=== PATIENT | male | born 1935 | race Caucasian/White ===

== ENCOUNTER 2019-12-10 17:49 | Emergency (ER) | payer BC ==
[~2019-12-10] VITALS: Ht 185.4 cm; Wt 79.4 kg
[2019-12-10 18:43] LABS: BASOPHILS ABSOLUTE AUTO 0.04 K/mm3 (0.00-0.23); BASOPHILS PERCENT AUTO 1 % (0-2); EOSINOPHILS ABSOLUTE AUTO 0.08 K/mm3 (0.00-0.68); EOSINOPHILS PERCENT AUTO 1 % (0-6); Hematocrit 48.2 % (37.0-53.0); Hemoglobin 16.6 g/dL (13.5-17.5); IMMATURE GRAN ABSOLUTE AUTO 0.02 K/mm3 (0.00-0.10); IMMATURE GRAN PERCENT AUTO 0 % (0-1); LYMPHOCYTES ABSOLUTE AUTO 2.21 K/mm3 (0.84-5.20); LYMPHOCYTES PERCENT AUTO 31 % (21-46); MONOCYTES ABSOLUTE AUTO 0.69 K/mm3 (0.16-1.47); MONOCYTES PERCENT AUTO 10 % (4-13); Mean Corpuscular HGB 31.8 pg (26.0-34.0); Mean Corpuscular HGB Conc 34.4 g/dL (31.5-36.5); Mean Corpuscular Volume 92 fL (80-100); Mean Platelet Volume 9.3 fL (9.1-12.4); NEUTROPHILS ABSOLUTE AUTO 4.01 K/mm3 (1.96-9.15); NEUTROPHILS PERCENT AUTO 57 % (41-73); Platelet Count 174 K/mm3 (150-400); RDW Coefficient Variation 13.2 % (11.7-14.2); RDW Standard Deviation 44.8 fL (35.1-46.3); Red Blood Cell Count 5.22 M/mm3 (4.30-5.90); White Blood Cell Count 7.05 K/mm3 (4.00-11.30)
[2019-12-10 18:58] LABS: Alanine Aminotransfer (ALT/SGP 43 U/L (12-78); Albumin, Blood 4.1 g/dL (3.4-5.0); Albumin/Globulin Ratio 1.4 (0.8-1.8); Alk Phos 72 U/L (50-136); Anion Gap 4 mmol/L (6-16); Aspartate Aminotrans (AST/SGOT 34 U/L (12-37); Bilirubin, Total 1.2 mg/dL (0.1-1.0); Blood Urea Nitrogen 21 mg/dL (8-24); Bun/Creatinine Ratio 24.3 (12.0-20.0); CO2, Blood 22 mmol/L (21-32); Calcium, Blood 9.5 mg/dL (8.5-10.1); Chloride, Blood 108 mmol/L (98-108); Creatinine, Blood 0.86 mg/dL (0.60-1.20); Globulin, Blood 2.9 g/dL (2.2-4.0); Glomerular Filtration Rate >60 (60-); Glucose, Blood 96 mg/dL (70-99); Potassium, Blood 4.1 mmol/L (3.5-5.5); Sodium, Blood 134 mmol/L (136-145)
[2019-12-10] MEDS ORDERED: ELIQUIS5 MG PO (20:34)
[2019-12-10] MEDS ORDERED: METO25ER PO (20:35)
[2019-12-10] MEDS ORDERED: TAMS.4ER PO (20:36)
[2019-12-10 20:57] LABS: Source, Urine Clean Catch
[2019-12-10 21:06] LABS: Appearance, Urine Clear (Clear); Bilirubin, Urine Neg (Neg); Blood, Urine 1+ (Neg); Color, Urine Yellow (P-Yellow); Glucose Qualitative, Urine Neg (Neg); Ketones, Urine 3+ (Neg); Leukocyte Esterase, Urine Neg (Neg); Nitrite, Urine Neg (Neg); Protein, Urine Neg (Neg); Urobilinogen, Urine NORM (Normal)
[2019-12-10 21:13] LABS: Bacteria Mod /hpf; Mucus Light (0-Heavy); Red Blood Cells, Urine 0-2 /hpf (0-2); Spermatozoa Mod /hpf; Squamous Epithelial Cells Few /hpf (Few); White Blood Cells, Urine 0-2 /hpf (0-5)
[2019-12-10] MEDS ORDERED: CEFDITOREN PIV200 MG PO (23:30)
== END 2019-12-10 23:44 | disposition home or self-care (01) ==
LOC: ER 17:49
PROVIDERS: Physician Assistant
DX: N30.90 Cystitis, unspecified without hematuria (principal); I48.91 Unspecified atrial fibrillation; Z79.899 Other long term (current) drug therapy
CPT/HCPCS: 36415; 74176; 80053; 81001; 83690; 85025; 87086; 96361; 96374; 99284-25; A9270; A9270-GY; J3010; J7030

== ENCOUNTER 2023-02-08 22:47 | Inpatient (IN) | payer OTHER, BC ==
[~2023-02-08] VITALS: Ht 185.4 cm; Wt 84.0 kg
[~2023-02-08 22:47] MED LIST: CEFDITOREN PIV200 MG PO; ELIQUIS5 MG PO; METO25ER PO; TAMS.4ER PO
[2023-02-09 02:45] LABS: BASOPHILS ABSOLUTE AUTO 0.06 K/mm3 (0.00-0.23); BASOPHILS PERCENT AUTO 1 % (0-2); EOSINOPHILS ABSOLUTE AUTO 0.02 K/mm3 (0.00-0.68); EOSINOPHILS PERCENT AUTO 0 % (0-6); Hematocrit 47.8 % (37.0-53.0); Hemoglobin 16.1 g/dL (13.5-17.5); IMMATURE GRAN ABSOLUTE AUTO 0.04 K/mm3 (0.00-0.10); IMMATURE GRAN PERCENT AUTO 0 % (0-1); LYMPHOCYTES ABSOLUTE AUTO 1.22 K/mm3 (0.84-5.20); LYMPHOCYTES PERCENT AUTO 11 % (21-46); MONOCYTES ABSOLUTE AUTO 0.73 K/mm3 (0.16-1.47); MONOCYTES PERCENT AUTO 7 % (4-13); Mean Corpuscular HGB 31.4 pg (26.0-34.0); Mean Corpuscular HGB Conc 33.7 g/dL (31.5-36.5); Mean Corpuscular Volume 93 fL (80-100); Mean Platelet Volume 9.2 fL (9.1-12.4); NEUTROPHILS ABSOLUTE AUTO 8.61 K/mm3 (1.96-9.15); NEUTROPHILS PERCENT AUTO 81 % (41-73); Platelet Count 183 K/mm3 (150-400); RDW Coefficient Variation 13.7 % (11.7-14.2); RDW Standard Deviation 47.7 fL (35.1-46.3); Red Blood Cell Count 5.12 M/mm3 (4.30-5.90); White Blood Cell Count 10.68 K/mm3 (4.00-11.30)
[2023-02-09 03:00] LABS: Bun/Creatinine Ratio 33.4 (12.0-20.0); Calcium, Blood 9.2 mg/dL (8.5-10.1); Creatinine, Blood 0.66 mg/dL (0.60-1.20); Potassium, Blood 3.8 mmol/L (3.5-5.5)
[2023-02-09 03:01] LABS: International Normalized Ratio 1.08; Prothrombin Time Results 11.3 Sec (9.7-11.5)
[2023-02-09 04:38] VITALS: BP 145/78
[2023-02-09 07:18] VITALS: BP 137/69
[2023-02-09 14:16] VITALS: BP 128/83
[2023-02-09 19:49] VITALS: BP 144/77
[2023-02-10] VITALS (10 sets, daily range): BP systolic 108–141; BP diastolic 62–87
[2023-02-10 05:15] LABS: BASOPHILS ABSOLUTE AUTO 0.04 K/mm3 (0.00-0.23); BASOPHILS PERCENT AUTO 1 % (0-2); EOSINOPHILS ABSOLUTE AUTO 0.06 K/mm3 (0.00-0.68); EOSINOPHILS PERCENT AUTO 1 % (0-6); Hematocrit 42.1 % (37.0-53.0); Hemoglobin 14.6 g/dL (13.5-17.5); IMMATURE GRAN ABSOLUTE AUTO 0.03 K/mm3 (0.00-0.10); IMMATURE GRAN PERCENT AUTO 0 % (0-1); LYMPHOCYTES ABSOLUTE AUTO 1.35 K/mm3 (0.84-5.20); LYMPHOCYTES PERCENT AUTO 16 % (21-46); MONOCYTES ABSOLUTE AUTO 1.08 K/mm3 (0.16-1.47); MONOCYTES PERCENT AUTO 13 % (4-13); Mean Corpuscular HGB 31.6 pg (26.0-34.0); Mean Corpuscular HGB Conc 34.7 g/dL (31.5-36.5); Mean Corpuscular Volume 91 fL (80-100); NEUTROPHILS ABSOLUTE AUTO 5.79 K/mm3 (1.96-9.15); NEUTROPHILS PERCENT AUTO 69 % (41-73); Platelet Count 169 K/mm3 (150-400); RDW Coefficient Variation 13.8 % (11.7-14.2); RDW Standard Deviation 46.5 fL (35.1-46.3); Red Blood Cell Count 4.62 M/mm3 (4.30-5.90); White Blood Cell Count 8.35 K/mm3 (4.00-11.30)
[2023-02-10 18:37] LABS: Source, Urine Straight Cath
[2023-02-10 18:46] LABS: Bilirubin, Urine Neg (Neg); Blood, Urine 3+ (Neg); Color, Urine Yellow (P-Yellow); Glucose Qualitative, Urine Neg (Neg); Ketones, Urine 2+ (Neg); Leukocyte Esterase, Urine Neg (Neg); Nitrite, Urine Neg (Neg); Protein, Urine 1+ (Neg); Urobilinogen, Urine NORM (Normal); pH, Urine 6.5 (5.0-8.0)
[2023-02-10 19:00] LABS: Appearance, Urine Hazy (Clear)
[2023-02-10 19:22] LABS: White Blood Cells, Urine 0-2 /hpf (0-5)
[2023-02-10 19:23] LABS: Bacteria Few /hpf; Hyaline Casts 0-2 /lpf (0-2); Mucus Light (0-Heavy); Spermatozoa Mod /hpf; Squamous Epithelial Cells Rare /hpf (Few)
[2023-02-11 00:19] VITALS: BP 123/69
[2023-02-11 06:18] LABS: BASOPHILS ABSOLUTE AUTO 0.01 K/mm3 (0.00-0.23); BASOPHILS PERCENT AUTO 0 % (0-2); EOSINOPHILS PERCENT AUTO 0 % (0-6); Hematocrit 39.7 % (37.0-53.0); Hemoglobin 13.5 g/dL (13.5-17.5); IMMATURE GRAN ABSOLUTE AUTO 0.04 K/mm3 (0.00-0.10); IMMATURE GRAN PERCENT AUTO 0 % (0-1); LYMPHOCYTES ABSOLUTE AUTO 0.71 K/mm3 (0.84-5.20); LYMPHOCYTES PERCENT AUTO 6 % (21-46); MONOCYTES ABSOLUTE AUTO 0.62 K/mm3 (0.16-1.47); MONOCYTES PERCENT AUTO 6 % (4-13); Mean Corpuscular HGB 31.9 pg (26.0-34.0); Mean Corpuscular Volume 94 fL (80-100); Mean Platelet Volume 9.4 fL (9.1-12.4); NEUTROPHILS ABSOLUTE AUTO 9.73 K/mm3 (1.96-9.15); NEUTROPHILS PERCENT AUTO 88 % (41-73); Platelet Count 163 K/mm3 (150-400); RDW Coefficient Variation 13.5 % (11.7-14.2); RDW Standard Deviation 46.4 fL (35.1-46.3); Red Blood Cell Count 4.23 M/mm3 (4.30-5.90); White Blood Cell Count 11.11 K/mm3 (4.00-11.30)
[2023-02-11 06:40] LABS: Bun/Creatinine Ratio 27.7 (12.0-20.0); Calcium, Blood 8.4 mg/dL (8.5-10.1); Creatinine, Blood 0.72 mg/dL (0.60-1.20); Magnesium, Blood 2.1 mg/dL (1.6-2.4); Potassium, Blood 3.9 mmol/L (3.5-5.5)
[2023-02-11 07:04] VITALS: BP 119/72
[2023-02-11 14:46] VITALS: BP 112/60
[2023-02-11 20:00] VITALS: BP 121/68
[2023-02-12 02:36] VITALS: BP 125/68
[2023-02-12 07:40] VITALS: BP 131/74
[2023-02-12 10:25] VITALS: BP 135/69
[2023-02-12] MEDS ORDERED: METO25ER PO (14:05)
[2023-02-12] MEDS ORDERED: SULTRIDS PO (14:08)
[2023-02-12] MEDS ORDERED: OXYC5 PO (14:08)
[2023-02-12] MEDS ORDERED: DOCU100 PO (14:08)
[2023-02-12 14:23] VITALS: BP 146/81
== END 2023-02-12 14:56 | disposition home health service (06) | DRG 522 ==
LOC: ER 22:47 → SURS 02-09 04:29
PROVIDERS: Internal Medicine; Orthopaedic Surgery; Student in an Organized Health Care Education/Training Program; ADMIT Internal Medicine
PROC: 0SRR0J9 Replacement of Right Hip Joint, Femoral Surface with Synthetic Substitute, Cemented, Open Approach (ICD-10-PCS; principal; 2023-02-10 14:00)
DX: S72.001A Fracture of unspecified part of neck of right femur, initial encounter for closed fracture (principal); I48.20 Chronic atrial fibrillation, unspecified; Z66 Do not resuscitate; W01.0XXA Fall on same level from slipping, tripping and stumbling without subsequent striking against object, initial encounter; F10.10 Alcohol abuse, uncomplicated; Z79.01 Long term (current) use of anticoagulants; Z79.899 Other long term (current) drug therapy; Z90.49 Acquired absence of other specified parts of digestive tract; Z87.442 Personal history of urinary calculi
CPT/HCPCS: 36415; 72170; 73502; 80048; 81001; 83735; 85025; 85610; 85730; 86850; 86900; 86901; 87086; 93005; 93010; 97110; 97116; 97161; 97165; 97530; 97535; 99284-25; A9270; C1713; C1776; J0171; J0690; J0696; J0735; J1100; J1885; J2370; J2405; J2704; J2795; J3010; J3370; J7030; J7120

== ENCOUNTER 2023-06-13 12:48 | Inpatient (IN) | payer OTHER ==
[~2023-06-13] VITALS: Ht 185.4 cm; Wt 82.1 kg
[~2023-06-13 12:48] MED LIST changes: +DOCU100 PO; +OXYC5 PO; +SULTRIDS PO
[2023-06-13] MEDS ORDERED: ACET500 PO (13:25)
[2023-06-13 14:28] LABS: Bun/Creatinine Ratio 31.7 (12.0-20.0); Calcium, Blood 8.1 mg/dL (8.5-10.1); Creatinine, Blood 0.73 mg/dL (0.60-1.20); Potassium, Blood 3.9 mmol/L (3.5-5.5)
[2023-06-13 14:36] LABS: BASOPHILS ABSOLUTE AUTO 0.04 K/mm3 (0.00-0.23); BASOPHILS PERCENT AUTO 1 % (0-2); EOSINOPHILS ABSOLUTE AUTO 0.05 K/mm3 (0.00-0.68); EOSINOPHILS PERCENT AUTO 1 % (0-6); Hematocrit 42.9 % (37.0-53.0); Hemoglobin 14.7 g/dL (13.5-17.5); IMMATURE GRAN ABSOLUTE AUTO 0.04 K/mm3 (0.00-0.10); IMMATURE GRAN PERCENT AUTO 1 % (0-1); LYMPHOCYTES ABSOLUTE AUTO 1.45 K/mm3 (0.84-5.20); LYMPHOCYTES PERCENT AUTO 20 % (21-46); MONOCYTES ABSOLUTE AUTO 0.68 K/mm3 (0.16-1.47); MONOCYTES PERCENT AUTO 9 % (4-13); Mean Corpuscular HGB Conc 34.3 g/dL (31.5-36.5); Mean Corpuscular Volume 91 fL (80-100); Mean Platelet Volume 9.1 fL (9.1-12.4); NEUTROPHILS PERCENT AUTO 69 % (41-73); Platelet Count 167 K/mm3 (150-400); RDW Coefficient Variation 13.8 % (11.7-14.2); Red Blood Cell Count 4.74 M/mm3 (4.30-5.90); White Blood Cell Count 7.36 K/mm3 (4.00-11.30)
--- NOTE | 2023-06-13 17:00 | NUR ---
PT ARRIVED TO THE UNIT AT APPROXIMATELY 1650. PAIN MANAGED AT TIME OF ARRIVAL TO THE ROOM. FAMILY AT THE BEDSIDE FOR SUPPORT.
[2023-06-13 17:04] VITALS: BP 155/68
--- NOTE | 2023-06-13 17:04 | NUR ---
PT ARRIVED TO THE ROOM AT APPROXIMATELY 1700. PT REPORTS PAIN IS TOLERABLE WHILE AT REST. PT HAS COROPLAST SPLINT IN PLACE, WILL NOTIFY DR. BAUMANN. FAMILY AT BEDSIDE FOR SUPPORT.
[2023-06-13] MEDS ORDERED: HYALURONIC ACID60 MG PO (18:44)
[2023-06-13 19:51] VITALS: BP 126/73
--- NOTE | 2023-06-13 20:03 | NUR ---
SHIFT SUMMARY PAIN MANAGED WITH IV FENT SINCE ARRIVAL. SPLINT REMOVED AND BUCKS TRACTION PLACED. REPORT GIVEN TO HONG RIVERA.
[2023-06-14] VITALS (11 sets, daily range): BP systolic 106–151; BP diastolic 43–81
--- NOTE | 2023-06-14 04:39 | NUR ---
SHIFT SUMMARY VSS. PT SLEPT ON AND OFF T/O THE NIGHT. HAS BEEN NPO SINCE 0000 FOR SURGERY TODAY. MEDICATED FOR PAIN WITH NORCO. PT C/O SPASMS AT THE BEGINNING OF SHIFT, OBTAINED ORDER FOR A MUSCLE RELAXER BUT PT DID NOT WANT TO TAKE IT. SPASMS RESOLVED. RLE ICED ON AND OFF T/O THE NIGHT. MAJOR SWELLING AND DEFORMITY NOTED RIGHT THIGH, BUCKS TRACTION IN PLACE. RLE HAS STRONG PULSE. PT DENIES ANY CHANGES IN SENSATION AND CAN MOVE FOOT ON THIS LEG ON COMMAND. PT VOIDING INTO URINAL. NO ACUTE EVENTS NOTED.
--- NOTE | 2023-06-14 18:05 | NUR ---
SHIFT SUMMARY PT IS POD#0 FROM R FEMUR REPAIR WITH DR. BAUMANN, HE ARRIVED BACK TO THE ROOM AT APPROXIMATELY 1620. PT REPORTS PAIN IS TOLERABLE WHILE AT REST. PT NAUSEATED UPON ARRIVAL TO ROOM, ZOFRAN RESOLVED NAUSEA. PT IS NOW TOLERATING FLUIDS AND SALTINE CRACKERS. FAMILY AT THE BEDSIDE FOR SUPPORT. CALL LIGHT WITHIN REACH.
[2023-06-15 00:41] VITALS: BP 107/77
[2023-06-15 03:03] VITALS: BP 109/76
--- NOTE | 2023-06-15 04:13 | NUR ---
SHIFT SUMMARY POD1 ORIF OF THE RIGHT FEMUR. DRESSING IS C/D/I, SENSATION AND CIRCULATION REMAINS INTACT IN THIS LIMB. STRONG PULSE NOTED. PT REPORTS HE MOVES HIS FOOT AND ANKLE AROUND "ALL NIGHT". APPEARED MOTIVATED TO RECOVER. PT WAS MEDICATED FOR PAIN ONCE, REPORTS HE FEELS LITTLE TO NO DISCOMFORT AND IS VERY HAPPY WITH THIS RESULT. VOIDING W/O DIFFICUTY, TOLLERATING PO INTAKE. TELE HAS READ AFIB. NO ACUTE EVENTS NOTED. PLAN FOR PT EVAL AND BEGINNING TO AMBULATE
[2023-06-15 05:34] LABS: BASOPHILS ABSOLUTE AUTO 0.02 K/mm3 (0.00-0.23); BASOPHILS PERCENT AUTO 0 % (0-2); EOSINOPHILS PERCENT AUTO 0 % (0-6); Hematocrit 30.3 % (37.0-53.0); Hemoglobin 10.5 g/dL (13.5-17.5); IMMATURE GRAN ABSOLUTE AUTO 0.05 K/mm3 (0.00-0.10); IMMATURE GRAN PERCENT AUTO 0 % (0-1); LYMPHOCYTES ABSOLUTE AUTO 1.39 K/mm3 (0.84-5.20); LYMPHOCYTES PERCENT AUTO 11 % (21-46); MONOCYTES ABSOLUTE AUTO 1.38 K/mm3 (0.16-1.47); MONOCYTES PERCENT AUTO 11 % (4-13); Mean Corpuscular HGB Conc 34.7 g/dL (31.5-36.5); Mean Corpuscular Volume 92 fL (80-100); Mean Platelet Volume 9.5 fL (9.1-12.4); NEUTROPHILS ABSOLUTE AUTO 9.89 K/mm3 (1.96-9.15); NEUTROPHILS PERCENT AUTO 78 % (41-73); Platelet Count 161 K/mm3 (150-400); RDW Standard Deviation 47.6 fL (35.1-46.3); Red Blood Cell Count 3.28 M/mm3 (4.30-5.90); White Blood Cell Count 12.73 K/mm3 (4.00-11.30)
[2023-06-15 05:50] LABS: Bun/Creatinine Ratio 28.3 (12.0-20.0); Calcium, Blood 7.9 mg/dL (8.5-10.1); Creatinine, Blood 0.67 mg/dL (0.60-1.20); Magnesium, Blood 2.2 mg/dL (1.6-2.4); Potassium, Blood 4.2 mmol/L (3.5-5.5)
[2023-06-15 07:51] VITALS: BP 106/71
[2023-06-15 15:24] VITALS: BP 105/64
[2023-06-15 19:16] VITALS: BP 105/55
--- NOTE | 2023-06-15 19:49 | NUR ---
SHIFT SUMMARY PT HAS DONE WELL TODAY. WORKED w/ BOTH OT & PT; EVERYONE IN AGREEMENT FOR PLAN TO DC TO SNF. CONTINUES TO DENY PAIN. JESSICA CHANGED TO GARCIA TODAY BY DR BAUMANN.
[2023-06-16 05:18] VITALS: BP 122/72
--- NOTE | 2023-06-16 07:05 | NUR ---
SHIFT SUMMARY POD 2 ORIF, AQUACEL C/D/I W/ SMALL DRAIN SPOT TO DRESSING. PT A&OX4, VERY PLEASANT AND COOPERATIVE. TELE IN PLACE FOR AFIB. PT SAT TO EDGE OF BED TO FRESHEN THIS A.M. AWAITING THERAPY FOR TOE TOUCH INSTRUCTIONS. PLANS FOR DISCHARGE TO REHAB TODAY. CALL LIGHT IN REACH.
[2023-06-16 07:20] VITALS: BP 116/70
[2023-06-16 07:21] VITALS: BP 116/70
[2023-06-16 08:10] LABS: BASOPHILS ABSOLUTE AUTO 0.05 K/mm3 (0.00-0.23); BASOPHILS PERCENT AUTO 1 % (0-2); EOSINOPHILS ABSOLUTE AUTO 0.06 K/mm3 (0.00-0.68); EOSINOPHILS PERCENT AUTO 1 % (0-6); Hematocrit 29.7 % (37.0-53.0); IMMATURE GRAN ABSOLUTE AUTO 0.04 K/mm3 (0.00-0.10); IMMATURE GRAN PERCENT AUTO 1 % (0-1); LYMPHOCYTES PERCENT AUTO 14 % (21-46); MONOCYTES ABSOLUTE AUTO 1.01 K/mm3 (0.16-1.47); MONOCYTES PERCENT AUTO 12 % (4-13); Mean Corpuscular HGB 31.3 pg (26.0-34.0); Mean Corpuscular HGB Conc 33.7 g/dL (31.5-36.5); Mean Corpuscular Volume 93 fL (80-100); Mean Platelet Volume 9.2 fL (9.1-12.4); NEUTROPHILS ABSOLUTE AUTO 6.12 K/mm3 (1.96-9.15); NEUTROPHILS PERCENT AUTO 72 % (41-73); Platelet Count 157 K/mm3 (150-400); RDW Coefficient Variation 13.9 % (11.7-14.2); RDW Standard Deviation 47.5 fL (35.1-46.3); White Blood Cell Count 8.48 K/mm3 (4.00-11.30)
[2023-06-16 12:23] LABS: SARS-Cov-2 (COVID-19) PCR, MMC NEGATIVE (NEGATIVE)
--- NOTE | 2023-06-16 13:15 | NUR ---
REPORT CALLED TO . TELE, IV, CONT BIOX REMOVED. BELONGINGS PACKED.
--- NOTE | 2023-06-16 13:48 | NUR ---
DISCHARGE PT DISCHARGED HOME FROM UNIT AT APROX 1335. PT PREV GIVEN WRITTEN AND VERBAL DC INSTRUCTIONS. PACKET GIVEN TO [employer]. WC OUT FOR TX
== END 2023-06-16 13:26 | DRG 481 ==
LOC: ER 12:48 → SURS 14:56
PROVIDERS: Emergency Medicine; Internal Medicine; Orthopaedic Surgery; Student in an Organized Health Care Education/Training Program; ADMIT Internal Medicine
PROC: 2W3LX1Z Immobilization of Right Lower Extremity using Splint (ICD-10-PCS; 2023-06-13)
PROC: 0QS804Z Reposition Right Femoral Shaft with Internal Fixation Device, Open Approach (ICD-10-PCS; principal; 2023-06-14 12:45)
DX: S72.091A Other fracture of head and neck of right femur, initial encounter for closed fracture (principal); M97.01XA Periprosthetic fracture around internal prosthetic right hip joint, initial encounter; I48.91 Unspecified atrial fibrillation; Z66 Do not resuscitate; D64.89 Other specified anemias; W01.0XXA Fall on same level from slipping, tripping and stumbling without subsequent striking against object, initial encounter; Z20.822 Contact with and (suspected) exposure to COVID-19; Z96.641 Presence of right artificial hip joint; Y93.01 Activity, walking, marching and hiking; Z79.01 Long term (current) use of anticoagulants; Z79.899 Other long term (current) drug therapy; Z87.442 Personal history of urinary calculi; Z90.49 Acquired absence of other specified parts of digestive tract
CPT/HCPCS: 29505; 36415; 73502; 73552; 80048; 83735; 85025; 86850; 86900; 86901; 94762; 96374-59; 97110; 97116; 97162; 97165; 97530; 97535; 99285-25; A9270; C1713; J0171; J0690; J0735; J1100; J1885; J2371; J2405; J2704; J2795; J3010; J3370; J7030; U0002

== ENCOUNTER 2023-09-09 08:27 | Inpatient (IN) | payer MEDICARE, BC ==
[~2023-09-09] VITALS: Ht 185.4 cm; Wt 85.5 kg
[~2023-09-09 08:27] MED LIST changes: +ACET500 PO; +HYALURONIC ACID60 MG PO
[2023-09-10] MEDS ORDERED: LATA.005SO BOTHEYES (14:34)
[2023-09-10 14:57] VITALS: BP 134/92
[2023-09-10 16:08] VITALS: BP 138/82
--- NOTE | 2023-09-10 16:16 | NUR ---
DR. BAUMANN RESCHEDULED PT FOR TOMORROW
--- NOTE | 2023-09-10 18:58 | NUR ---
SHIFT SUMMARY PT A&OX4, VSS/RA, JOELLEN PO, VOIDING/BM-BSC, STAND PIVOT LLE & RLE NWB, FWW/GB 1 PP MOD ASSIST, PAIN MANAGED W/TYLENOL, IV 18G LFA W/IVF @ 75 MLS/HR. PLAN FOR NPO MIDNIGHT AND SURGERY TOMORROW. REPORT TO TONY RIVERA.
[2023-09-10 19:13] VITALS: BP 118/75
[2023-09-11] VITALS (15 sets, daily range): BP systolic 114–142; BP diastolic 66–84
--- NOTE | 2023-09-11 04:36 | NUR ---
SHIFT SUMMARY PT ABLE TO REST T/O NIGHT. DENIES ANY PAIN. VOIDING, USING URINAL. NPO SINCE MIDNIGHT. PLAN FOR SURGERY TODAY. NO OTHER CONCERNS AT THIS TIME. CALL LIGHT WITHIN REACH.
[2023-09-11 04:45] LABS: BASOPHILS ABSOLUTE AUTO 0.07 K/mm3 (0.00-0.23); BASOPHILS PERCENT AUTO 1 % (0-2); EOSINOPHILS PERCENT AUTO 5 % (0-6); Hematocrit 43.4 % (37.0-53.0); Hemoglobin 14.5 g/dL (13.5-17.5); IMMATURE GRAN ABSOLUTE AUTO 0.02 K/mm3 (0.00-0.10); IMMATURE GRAN PERCENT AUTO 0 % (0-1); LYMPHOCYTES PERCENT AUTO 29 % (21-46); MONOCYTES ABSOLUTE AUTO 0.66 K/mm3 (0.16-1.47); MONOCYTES PERCENT AUTO 12 % (4-13); Mean Corpuscular HGB 29.7 pg (26.0-34.0); Mean Corpuscular HGB Conc 33.4 g/dL (31.5-36.5); Mean Corpuscular Volume 89 fL (80-100); Mean Platelet Volume 8.6 fL (9.1-12.4); NEUTROPHILS ABSOLUTE AUTO 2.94 K/mm3 (1.96-9.15); NEUTROPHILS PERCENT AUTO 53 % (41-73); Platelet Count 236 K/mm3 (150-400); RDW Coefficient Variation 13.1 % (11.7-14.2); RDW Standard Deviation 42.5 fL (35.1-46.3); Red Blood Cell Count 4.89 M/mm3 (4.30-5.90); White Blood Cell Count 5.59 K/mm3 (4.00-11.30)
[2023-09-11 05:08] LABS: Bun/Creatinine Ratio 29.4 (12.0-20.0); Calcium, Blood 8.6 mg/dL (8.5-10.1); Creatinine, Blood 0.71 mg/dL (0.60-1.20); Magnesium, Blood 2.4 mg/dL (1.6-2.4)
--- NOTE | 2023-09-11 11:10 | NUR ---
PATIENT IS BEING TAKEN BACK TO THE OR AT THIS TIME.
--- NOTE | 2023-09-11 11:21 | NUR ---
PT BROUGHT FROM FLOOR TO DAY SURGERY FOR PROCEDURE TO GO AT NOON WITH DR BAUMANN.
--- NOTE | 2023-09-11 21:36 | NUR ---
UPDATE PT HAS BEEN FREQUENTLY URINATING, ONLY OUTPUTTING 50-100 ML EVERY URINATION. BLADDER SCANNED, 556ML IN THE BLADDER. DR BAUMANN NOTIFIED, ORDER FOR STRAIGHT CATH.
[2023-09-12 00:14] VITALS: BP 113/69
[2023-09-12 04:16] VITALS: BP 106/60
--- NOTE | 2023-09-12 05:21 | NUR ---
SHIFT SUMMARY POD1 R HIP ORIF PT SLEPT T/O NIGHT. DENIES ANY PAIN. TOLERTING PO INTAKE. STRAIGHT CATHED AT 2144, PT HAS NOT VOIDED SINCE. BLADDER SCANNED THIS AM 220ML IN THE BLADDER. PT DENIES HAVING TO GO. ASKED ABOUT GETTING UP THI MORNING AND IS WILLING TO. WILL ATTEMPT TO GO TO THE BATHROOM THEN. DENIES N/T. MARTIN WRAP AND GAUZE C/D/I. NO OTHER CONCERNS AT THIS TIME. CALL LIGHT WITHIN REACH
[2023-09-12 05:43] LABS: BASOPHILS ABSOLUTE AUTO 0.01 K/mm3 (0.00-0.23); BASOPHILS PERCENT AUTO 0 % (0-2); EOSINOPHILS PERCENT AUTO 0 % (0-6); Hematocrit 39.9 % (37.0-53.0); Hemoglobin 13.4 g/dL (13.5-17.5); IMMATURE GRAN ABSOLUTE AUTO 0.04 K/mm3 (0.00-0.10); IMMATURE GRAN PERCENT AUTO 0 % (0-1); LYMPHOCYTES PERCENT AUTO 11 % (21-46); MONOCYTES ABSOLUTE AUTO 0.95 K/mm3 (0.16-1.47); MONOCYTES PERCENT AUTO 9 % (4-13); Mean Corpuscular HGB 30.3 pg (26.0-34.0); Mean Corpuscular HGB Conc 33.6 g/dL (31.5-36.5); Mean Corpuscular Volume 90 fL (80-100); Mean Platelet Volume 8.8 fL (9.1-12.4); NEUTROPHILS ABSOLUTE AUTO 8.15 K/mm3 (1.96-9.15); NEUTROPHILS PERCENT AUTO 80 % (41-73); Platelet Count 239 K/mm3 (150-400); RDW Standard Deviation 42.8 fL (35.1-46.3); Red Blood Cell Count 4.42 M/mm3 (4.30-5.90); White Blood Cell Count 10.25 K/mm3 (4.00-11.30)
[2023-09-12 07:05] LABS: Bun/Creatinine Ratio 28.1 (12.0-20.0); Calcium, Blood 8.8 mg/dL (8.5-10.1); Creatinine, Blood 0.71 mg/dL (0.60-1.20); Magnesium, Blood 2.2 mg/dL (1.6-2.4); Potassium, Blood 4.6 mmol/L (3.5-5.5)
[2023-09-12 07:31] VITALS: BP 102/59
[2023-09-12 10:46] VITALS: BP 113/61
[2023-09-12 15:21] VITALS: BP 131/69
--- NOTE | 2023-09-12 19:25 | NUR ---
SHIFT SUMMARY POD1 R FEMUR REVISION OF ORIF, A/OX4, VSS, TOLERATING PO, PAIN WELL MANAGED, ABLE TO STAND PIVOT AND ADHERE TO WEIGHT BEARING STATUS, IV ABX STARTED ORDERED, BACTRIM PUSHED OUT TO START AFTER IV ABX HAVE FINISHED IN 48 HOURS PER MD. NO ACUTE EVENTS THIS SHIFT, CALL LIGHT IN REACH.
[2023-09-12 19:26] VITALS: BP 139/79
[2023-09-13 04:06] VITALS: BP 135/66
[2023-09-13 04:14] VITALS: BP 110/89
--- NOTE | 2023-09-13 04:17 | NUR ---
SHIFT SUMMARY PT POD 1 R HIP REVISION. MARTIN WRAP TO RLE C/D/I, TO BE CHANGED TODAY BY . PT HAS DENIED PAIN T/O SHIFT. TTWB AND POSTERIOR HIP PRECAUTIONS FOLLOWED BY PATIENT WITH ALL TX TO BSC USING FWW AND GAIT BELT. PT TOLERATING REGULAR DIET W/NO N/V, VOIDING W/O DIFFICULTY. PT TO CONTINUE IV ABX FOR TOTAL OF 48 HRS THEN WILL TRANSITION TO ORAL ABX AT MN.
[2023-09-13 07:55] VITALS: BP 145/72
[2023-09-13 07:56] VITALS: BP 125/75
[2023-09-13 15:34] VITALS: BP 128/81
--- NOTE | 2023-09-13 17:21 | NUR ---
SHIFT SUMMARY PT POD #1 FOR R HIP REVISION. RECEIVING IV ABX. DRESSING CHANGED TO AQUACEL TODAY BY SURGEON. DRESSINGS CDI. PAIN CURRENTLY CONTROLLED TOMORROW. PT TO DC HOME TOMORROW. VSS. UP IN THE CHAIR WITH TOE TOUCH WB. UP IN CHAIR WITH CALL LIGHT IN REACH.
[2023-09-13 19:35] VITALS: BP 122/56
[2023-09-14 05:34] VITALS: BP 119/72
--- NOTE | 2023-09-14 06:37 | NUR ---
SHIFT SUMMARY PT IS POD#3 FOR AN ORIF FOR HIS RIGHT HIP. PT HAS ONLY RECEIVED TYLENOL ONCE THIS SHIFT FOR PAIN AND PER EMAR, ALL IV ABX HAVE BEEN COMPLETED. PT USED THE URINAL APPROPRIATELY LAST NIGHT AND LET HIS NEEDS BE KNOWN TO THIS RN, WHICH WERE MINIMAL. NO ACUTE EVENTS OCCURRING OVERNIGHT. BED IS IN LOWEST POSITION, CALL LIGHT IS WITHIN REACH.
[2023-09-14 07:04] VITALS: BP 116/70
--- NOTE | 2023-09-14 09:33 | NUR ---
09/14/23 0933 Allie Arriaga VERIFICATIONS: EDIT CHART.
[2023-09-14] MEDS ORDERED: SODIUM HYALURONATE PO (13:12)
[2023-09-14] MEDS ORDERED: ONDA4 PO (13:12)
[2023-09-14] MEDS ORDERED: OXYC5 PO (13:13)
[2023-09-14] MEDS ORDERED: SULTRIDS PO (13:13)
[2023-09-14 13:45] VITALS: BP 133/80
--- NOTE | 2023-09-14 14:21 | NUR ---
DISCHARGE PT PROVIDED WITH WRITTEN AND VERBAL DISCHARGE INSTRUCTIONS; PT VERBALIZED UNDERSTANDING. PT AND HIS REPORTED PICKING UP PRESCRIPTIONS PRIOR TO ADMIT TO THE HOSPITAL, THIS WAS VERIFIED BY [facility]. THIS RN CLARIFIED WITH PT THAT HE DID NOT START ABX PRIOR TO ADMIT, PT CONFIRMED ABX HAD NOT STARTED BEFORE ADMIT, HE VERBALIZED UNDERSTANDING OF NEED TO START ABX TONIGHT SINCE AM DOSE WAS GIVEN. CLEAN DRESSINGS PROVIDED. HOME HEALTH ARRANGED BY DIYA RIVERA PRIOR TO DISCHARGE. PT ASSISTED OUT AT 1403 BY BECKY AGUAYO WITHIN 1 HOUR OF DISCHARGE.
== END 2023-09-14 14:03 | disposition home health service (06) | DRG 481 ==
LOC: PRE IP 08:27 → SURS 08:27 → PRE IP 10:45 → SURS 09-10 14:17
PROVIDERS: ADMIT Orthopaedic Surgery
PROC: 0QP804Z Removal of Internal Fixation Device from Right Femoral Shaft, Open Approach (ICD-10-PCS; 2023-09-11)
PROC: 0QS804Z Reposition Right Femoral Shaft with Internal Fixation Device, Open Approach (ICD-10-PCS; principal; 2023-09-11 12:00)
PROC: 0QU80KZ Supplement Right Femoral Shaft with Nonautologous Tissue Substitute, Open Approach (ICD-10-PCS; 2023-09-11 12:00)
DX: S72.351A Displaced comminuted fracture of shaft of right femur, initial encounter for closed fracture (principal); M97.01XA Periprosthetic fracture around internal prosthetic right hip joint, initial encounter; X58.XXXA Exposure to other specified factors, initial encounter; I48.91 Unspecified atrial fibrillation; Z79.01 Long term (current) use of anticoagulants
CPT/HCPCS: 36415; 73552; 80048; 83735; 85025; 94762; 97110; 97116; 97161; 97165; 97530; A9270; C1713; J0171; J0690; J0735; J1100; J1170; J1885; J2405; J2704; J2795; J3010; J3370; J3480; J7050; J7120